=== PATIENT | male | born 1995 | race Native Hawaiian/Other Pacific Islander ===

== ENCOUNTER 2018-09-23 09:15 | Outpatient (CLI) | payer OTHER ==
[~2018-09-23 09:15] MED LIST: ALBUTEROL NEB 2.5 MG/3 ML INH ONE
== END 2018-09-23 09:16 | disposition home or self-care (01) ==
LOC: RT 09:15
PROVIDERS: ATTEND Specialist
DX: J45.909 Unspecified asthma, uncomplicated (principal)
CPT/HCPCS: 94010

== ENCOUNTER 2021-09-04 23:10 | Emergency (ER) | payer OTHER ==
--- NOTE | 2021-09-04 23:19 | ED Physician Documentation ---
History of Present Illness - Stated complaint Stated Complaint: LT LEG WOUND - Chief complaint Chief Complaint: Ext Problem - History obtained from History obtained from: Patient - History of Present Illness Timing: How many weeks ago (1) Pain level now: 1 Improved by: rest, elevation Worsened by: standing - Additonal information Additional information: c/o 1 week of atraumatic left lower leg swelling, redness. he was T+R from [facility] ED 1 week ago, and he says he had a fever Tmax 100.2 (although he says he has not had fever since then). He was diagnosed with cellulitis (per patient) and prescribed bactrim which he has been taking as prescribed. He presents at this time due to concerned that the color of the lesion has changed over the course of the day to a darker brown/blue color. He says the swelling and pain isn't particularly worse, though not better, compared to the past few days. Review of Systems Constitutional: reports: Fever (1 week ago without recurrence) Skin: reports: Rash, Lesions PD PAST MEDICAL HISTORY - Past Medical History Past Medical History: No - Present Medications Home Medications: Ambulatory Orders Medication Instructions Recorded Confirmed SULFAM/TRIM 800/160 Prepack 2 1 tab PO BID 09/04/21 09/05/21 [BACTRIM DS 800/160 Prepack 2] - Allergies Allergies/Adverse Reactions: Allergies Allergy/AdvReac Type Severity Reaction Status Date / Time No Known Drug Allergies Allergy Verified 09/05/21 18:14 - Living Situation Living Arrangement: reports: At home PD ED PE NORMAL - Vitals Vital signs reviewed: Yes - General General: Alert and oriented X 3, No acute distress, Well developed/nourished - Extremities Extremities: Normal ROM s pain, No edema PD ED PE EXPANDED - Extremities CASEY LE visual: 1 - rash (poorly marginated hyperpigmentation, no erythema. not hot to touch), swelling (approximately 1-2cm diameter swelling that is soft and not fluctuant), tenderness (minimal TTP) Results - Vitals Vitals: Vital Signs - 24 hr 02/21/22 02/22/22 23:13 01:01 Temperature 36.5 C 37.3 C Heart Rate 79 78 Respiratory 16 14 Rate Blood Pressure 129/74 144/82 H O2 Saturation 96 100 Oxygen O2 Source Room air - Rads (name of study) xrays tib/fib Radiology: Prelim report reviewed, See rad report PD MEDICAL DECISION MAKING - ED course Complexity details: reviewed results, re-evaluated patient, considered differential, d/w patient ED course: xrays peformed to ensure there is no evidence of mass or lytic (bony) lesion; the xrays are unremarkable. He is given 1gram IM rocephin and instructed to continue (finish) his current antibiotic prescription Departure - Departure Disposition: Home, Self Care Clinical Impression: Cellulitis Condition: Good Instructions: ED Infec Skin Cellulitis Follow-Up: Cory Jensen DO [Primary Care Provider] - Comments: Finish the previously prescribed antibiotic. You were given a shot of a diffe rent antibiotic (rocephin) in the emergency department because you have indicated the infection seems to be getting worse today. Hopefully the shot of rocephin and finishing the other antibiotic will help resolve the lesion. As we discussed, I am not certain the lesion represents an infection, and thus I recommend that you arrange for follow up with your primary care provider; if possible, reevaluation within the next week would be ideal. Discharge Date/Time: 09/05/21 01:04
--- NOTE | 2021-09-05 00:07 | XRAY Report ---
PROCEDURE: Tib/Fib LT INDICATIONS: painful swelling, focal, left lower leg TECHNIQUE: 2 views of the tibia and fibula were acquired. COMPARISON: None FINDINGS: Bones: No fractures or dislocations. No suspicious bony lesions. Soft tissues: No suspicious soft tissue calcifications or masses. IMPRESSION: No evidence acute bony abnormality of the left tibia and fibula. Reviewed by: Jamie Rueda MD on 09/05/2021 12:05 AM PST Approved by: Jamie Rueda MD on 09/05/2021 12:05 AM PST Station ID: [id number]
[2021-09-05] MEDS ORDERED: cefTRIAXone 1 GM VIAL IM STA (00:34)
[2021-09-05 01:03] VITALS: BP 144/82
== END 2021-09-05 01:04 | disposition home or self-care (01) ==
LOC: ED 23:10
DX: L03.116 Cellulitis of left lower limb (principal)
CPT/HCPCS: 96372; 99283

== ENCOUNTER 2021-09-05 18:03 | Emergency (ER) | payer BC, OTHER ==
--- NOTE | 2021-09-05 18:17 | ED Physician Documentation ---
PD HPI SKIN - Stated complaint Stated Complaint: SUDDEN FEVER SPIKE - Chief complaint Chief Complaint: Fever - History obtained from History obtained from: Patient - History of Present Illness Timing - onset: Today (has had cellulitis left lower leg being treated with BActrim and gradually improving but still local redness/swelling anteriorly. SEen last evening and had IM Rocephin added. TOld to return if fever/worse. PT states temp to 102 this afternoon, so here for exam. FEels general malaise as well.) Timing - duration: Days (onset today of malaise and fever. HAs had leg infection for a week.) Location: LLE Quality / character: Painful, Discolored, Raised. No: Draining Associated symptoms: Fever (today), Myalgias (today). No: N/V/D Similar symptoms before: Has not had sx before Recently seen: Clinic, Emergency Dept Review of Systems Constitutional: reports: Fever, Myalgias Nose: denies: Rhinorrhea / runny nose, Congestion Throat: denies: Sore throat Respiratory: denies: Cough GI: denies: Nausea, Vomiting, Diarrhea Neurologic: denies: Altered mental status, Headache PD PAST MEDICAL HISTORY - Past Medical History Cardiovascular: None Respiratory: None Endocrine/Autoimmune: None - Past Surgical History Past Surgical History: Yes General: Other Ortho: Other - Present Medications Home Medications: Ambulatory Orders Medication Instructions Recorded Confirmed SULFAM/TRIM 800/160 Prepack 2 1 tab PO BID 09/04/21 09/05/21 [BACTRIM DS 800/160 Prepack 2] clindamycin HCL [Clindamycin HCl] 300 mg PO TID #30 cap 09/05/21 - Allergies Allergies/Adverse Reactions: Allergies Allergy/AdvReac Type Severity Reaction Status Date / Time No Known Drug Allergies Allergy Verified 09/05/21 18:14 - Social History Does the pt smoke?: No Smoking Status: Never smoker Does the pt drink ETOH?: Yes Does the pt have substance abuse?: No - Immunizations Immunizations are current?: Yes - POLST Patient has POLST: No PD ED PE NORMAL - Vitals Vital signs reviewed: Yes - General General: Alert and oriented X 3, No acute distress, Well developed/nourished - HEENT HEENT: Pharynx benign - Neck Neck: Supple, no meningeal sign, No adenopathy - Cardiac Cardiac: RRR, No murmur - Respiratory Respiratory: Clear bilaterally - Abdomen Abdomen: Soft, Non tender - Derm Derm: Normal color, Warm and dry, Other (lower anterior left lower leg with moderate local redness about 6-8 cm diameter, with central 2 cm raised area of fluctuant tenderness. BEdside U?S Showing fluid collection. ) - Neuro Neuro: Alert and oriented X 3, No motor deficit, No sensory deficit, Normal speech Results - Vitals Vitals: Vital Signs - 24 hr 09/05/21 09/05/21 09/05/21 18:08 18:31 19:39 Temperature 37.4 C Heart Rate 109 H 107 H 94 Respiratory 18 18 20 Rate Blood Pressure 118/63 115/69 O2 Saturation 97 95 98 09/05/21 09/05/21 09/05/21 19:44 20:25 21:00 Temperature Heart Rate 98 95 85 Respiratory 20 14 14 Rate Blood Pressure 120/70 113/68 110/60 O2 Saturation 98 97 100 09/05/21 21:10 Temperature 38.3 C H Heart Rate Respiratory Rate Blood Pressure O2 Saturation Oxygen O2 Source Room air - Labs Labs: Laboratory Tests 09/05/21 09/05/21 09/05/21 18:50 18:50 18:50 WBC 2.5 L RBC 4.57 L Hgb 13.9 L Hct 40.2 L MCV 88.0 MCH 30.4 MCHC 34.6 RDW 12.2 Plt Count 288 MPV 9.9 Neut # (Auto) 1.5 Lymph # (Auto) 0.4 L [place] # (Auto) 0.5 Eos # (Auto) 0.1 Baso # (Auto) 0.0 Absolute Nucleated RBC 0.00 Nucleated RBC % 0.0 Manual Slide Review Indicated WBC Morphology NORMAL APPEARANCE Platelet Estimate NORMAL (130-450,000) Platelet Morphology NORMAL APPEARANCE RBC Morph Micro Appear NORMAL APPEARANCE Sodium Potassium Chloride Carbon Dioxide Anion Gap BUN Creatinine Estimated GFR (MDRD) Glucose Lactic Acid 1.4 Calcium Total Bilirubin AST ALT Alkaline Phosphatase Total Protein Albumin Globulin Albumin/Globulin Ratio Lipase Nasal Adenovirus (PCR) NOT DETECTED Nasal B. parapertussis DNA (PCR) NOT DETECTED Nasal Coronavir 229E PCR NOT DETECTED Nasal Coronavir HKU1 PCR NOT DETECTED Nasal Coronavir NL63 PCR NOT DETECTED Nasal Coronavir OC43 PCR NOT DETECTED Nasal Enterovir/Rhinovir PCR NOT DETECTED Nasal Influenza B PCR NOT DETECTED Nasal Influenza A PCR NOT DETECTED Nasal Parainfluen 1 PCR NOT DETECTED Nasal Parainfluen 2 PCR NOT DETECTED Nasal Parainfluen 3 PCR NOT DETECTED Nasal Parainfluen 4 PCR NOT DETECTED Nasal RSV (PCR) NOT DETECTED Nasal B.pertussis DNA PCR NOT DETECTED Nasal C.pneumoniae (PCR) NOT DETECTED [place] Human Metapneumo PCR NOT DETECTED Nasal M.pneumoniae (PCR) NOT DETECTED Nasal SARS-CoV-2 (PCR) NOT DETECTED 09/05/21 19:33 WBC RBC Hgb Hct MCV MCH MCHC RDW Plt Count MPV Neut # (Auto) Lymph # (Auto) [place] # (Auto) Eos # (Auto) Baso # (Auto) Absolute Nucleated RBC Nucleated RBC % Manual Slide Review WBC Morphology Platelet Estimate Platelet Morphology RBC Morph Micro Appear Sodium 131 L Potassium 3.8 Chloride 99 L Carbon Dioxide 24 Anion Gap 8.0 BUN 11 Creatinine 1.3 H Estimated GFR (MDRD) 66 L Glucose 119 H Lactic Acid Calcium 8.0 L Total Bilirubin 0.3 AST 35 ALT 34 Alkaline Phosphatase 109 Total Protein 6.7 Albumin 3.4 Globulin 3.3 Albumin/Globulin Ratio 1.0 Lipase 29 Nasal Adenovirus (PCR) Nasal B. parapertussis DNA (PCR) Nasal Coronavir 229E PCR Nasal Coronavir HKU1 PCR Nasal Coronavir NL63 PCR Nasal Coronavir OC43 PCR Nasal Enterovir/Rhinovir PCR Nasal Influenza B PCR Nasal Influenza A PCR Nasal Parainfluen 1 PCR Nasal Parainfluen 2 PCR Nasal Parainfluen 3 PCR Nasal Parainfluen 4 PCR Nasal RSV (PCR) Nasal B.pertussis DNA PCR Nasal C.pneumoniae (PCR) [place] Human Metapneumo PCR Nasal M.pneumoniae (PCR) Nasal SARS-CoV-2 (PCR) Procedures - Abscess I&D (location) left anterior lower leg Preparation: Confirmed with ultrasound, Lidocaine 1%, With epi Incision: Incised with scalpel, Purulent drainage, Irrigated, Culture obtained Other: Pt tolerated well, Dressing applied PD MEDICAL DECISION MAKING - ED course Complexity details: reviewed results (WBC actually low. lactate okay. blood cultures obtained to eval for potential bacteremia from the left infection. Resp panel negative, as consider other cause for malaise/fever. ), considered differential (slowly improving cellulitis with apparent central abscess still. can do I&D to help resolve sooner. HAd malaise/fever today, so consider for sepsis/bacteremia. ), d/w patient Departure - Departure Disposition: 01 Home, Self Care Clinical Impression: Abscess of lower leg Cellulitis Qualifiers: Site of cellulitis: extremity Site of cellulitis of extremity: lower extremity Laterality: left Qualified Code(s): L03.116 - Cellulitis of left lower limb Condition: Good Record reviewed to determine appropriate education?: Yes Instructions: ED Infec Skin Cellulitis Follow-Up: Cory Jensen DO [Primary Care Provider] - Prescriptions: clindamycin HCL [Clindamycin HCl] 300 mg PO TID #30 cap Comments: A prescription for a different antibiotic (clindamycin) has been electronically submitted to [facility] pharmacy in [place], but FINISH THE PREVIOUSLY PRESCRIBED ANTIBIOTIC (bactrim). This is not an uncommon combination of antibiotics. The results of the wound culture will be available in 2 or 3 days, and if the culture shows a bacterial infection that is resistant to the antibiotics you are on, you should get a call from this hospital and advice as to switching to an appropriate antibiotic Discharge Date/Time: 09/05/21 21:10
[2021-09-05] MEDS ORDERED: SODIUM CHLORIDE 0.9% 1,000 ML IV STA (18:34)
[2021-09-05] MEDS ORDERED: CLINDAMYCIN 600 MG/50 ML 50 ML IV ONE (18:35)
[2021-09-05] MEDS ORDERED: LIDOCAINE 1%-EPI 1:100000 20 ML MDV SUBQ STA (18:35)
[2021-09-05 19:15] LABS: BASOPHILS % (AUTO) 1.2 %; EOSINOPHILS # (AUTO) 0.1 10^3/uL (0.0-0.7); EOSINOPHILS % (AUTO) 4.4 %; HCT - HEMATOCRIT 40.2 % (42.0-52.0); HGB - HEMOGLOBIN 13.9 g/dL (14.0-18.0); LYMPHOCYTES # (AUTO) 0.4 10^3/uL (1.5-3.5); MEAN CORPUSCULAR HEMOGLOBIN 30.4 pg (27.0-31.0); MEAN CORPUSCULAR HGB CONC 34.6 g/dL (32.0-36.0); MEAN PLATELET VOLUME 9.9 fL (7.4-11.4); MONOCYTES # (AUTO) 0.5 10^3/uL (0.0-1.0); MONOCYTES % (AUTO) 19.2 %; NEUTROPHILS # (AUTO) 1.5 10^3/uL (1.5-6.6); NEUTROPHILS % (AUTO) 59.2 %; PLT - PLATELET COUNT 288 10^3/uL (130-450); RED BLOOD COUNT 4.57 10^6/uL (4.70-6.10); RED CELL DISTRIBUTION WIDTH 12.2 % (12.0-15.0); WHITE BLOOD COUNT 2.5 x10^3/uL (4.8-10.8)
[2021-09-05 19:21] LABS: SLIDE REVIEW? Indicated
[2021-09-05 19:51] LABS: ALBUMIN 3.4 g/dL (3.2-5.5); BILIRUBIN,TOTAL 0.3 mg/dL (0.2-1.0); CREATININE 1.3 mg/dL (0.6-1.2); POTASSIUM 3.8 mmol/L (3.5-5.0); TOTAL PROTEIN 6.7 g/dL (6.7-8.2)
[2021-09-05 19:57] LABS: PLATELET ESTIMATE, MANUAL NORMAL (130-450,000) (NORMAL); PLATELET MORPHOLOGY NORMAL APPEARANCE (NORMAL); RBC MORPHOLOGY (MULTIPLE) NORMAL APPEARANCE (NORMAL); WBC MORPHOLOGY (MULTIPLE) NORMAL APPEARANCE (NORMAL)
[2021-09-05 20:08] LABS: B. PARAPERTUSSIS- RESP PCR PAN NOT DETECTED; B. PERTUSSIS- RESP PCR PANEL NOT DETECTED; C. PNEUMONIAE- RESP PCR PANEL NOT DETECTED; CORONAVIRUS 229E-RESP PCR NOT DETECTED; CORONAVIRUS HKU1-RESP PCR NOT DETECTED; CORONAVIRUS NL63-RESP PCR NOT DETECTED; CORONAVIRUS OC43-RESP PCR NOT DETECTED; HUMAN METAPNEUMOVIRUS NOT DETECTED; INFLUENZA A- RESP PCR PANEL NOT DETECTED; INFLUENZA B - RESP PCR PANEL NOT DETECTED; M. PNEUMONIAE- RESP PCR PANEL NOT DETECTED; PARAINFLUENZA VIRUS 1 NOT DETECTED; PARAINFLUENZA VIRUS 2 NOT DETECTED; PARAINFLUENZA VIRUS 3 NOT DETECTED; PARAINFLUENZA VIRUS 4 NOT DETECTED; RHINOVIRUS/ENTEROVIRUS NOT DETECTED; RSV- RESP PCR PANEL NOT DETECTED; SARS-CoV-2 -RESP PCR PANEL NOT DETECTED
[2021-09-05 21:03] VITALS: BP 110/60
--- NOTE | 2021-09-05 21:03 | ED Physician Documentation ---
ED Addendum - Addendum Addendum: 09/05/21 21:01 Received sign out from Dr. Castanon. I saw this patient the previous night for same, but he returns due to fever. His blood tests do not have alarming findings, although he has mild leukopenia and creatinine is 1.6; these can be rechecked in outpatient setting. I applied pressure to the I+D site (performed by Dr. Lg meza) and I was able to express more purulent material. He is well appearing and comfortable with d/c home. Test results reviewed with patient, instructed to seek follow up , ideally at end of week so the antibiotic has a chance to have noticeable effect. He is encouraged to return if worse.
== END 2021-09-05 21:10 | disposition home or self-care (01) ==
LOC: ED 18:03
DX: L03.116 Cellulitis of left lower limb (principal); Z20.822 Contact with and (suspected) exposure to COVID-19
CPT/HCPCS: 0202U; 10060; 36415; 80053; 83605; 83690; 85025; 87040; 87070; 87205; 96365; 99282; 99284

== ENCOUNTER 2021-09-07 11:01 | Emergency (ER) | payer BC ==
[2021-09-07 12:27] LABS: BASOPHILS % (AUTO) 0.3 %; EOSINOPHILS % (AUTO) 1.3 %; HCT - HEMATOCRIT 39.7 % (42.0-52.0); HGB - HEMOGLOBIN 14.1 g/dL (14.0-18.0); LYMPHOCYTES % (AUTO) 21.5 %; MEAN CORPUSCULAR HEMOGLOBIN 30.8 pg (27.0-31.0); MEAN CORPUSCULAR HGB CONC 35.5 g/dL (32.0-36.0); MEAN CORPUSCULAR VOLUME 86.7 fL (80.0-94.0); MEAN PLATELET VOLUME 9.4 fL (7.4-11.4); MONOCYTES % (AUTO) 6.1 %; NEUTROPHILS % (AUTO) 70.5 %; PLT - PLATELET COUNT 217 10^3/uL (130-450); RED BLOOD COUNT 4.58 10^6/uL (4.70-6.10); RED CELL DISTRIBUTION WIDTH 11.9 % (12.0-15.0); WHITE BLOOD COUNT 3.8 x10^3/uL (4.8-10.8)
[2021-09-07 12:30] LABS: ABNORMAL LYMPHS % (MANUAL) 0 %
[2021-09-07 12:37] LABS: CALCIUM 8.4 mg/dL (8.5-10.3); CREATININE 1.3 mg/dL (0.6-1.2); POTASSIUM 3.8 mmol/L (3.5-5.0)
[2021-09-07 12:46] LABS: BAND NEUTROPHILS % (MANUAL) 2 %; DIFFERENTIAL COMMENT MANUAL DIFFERENTIAL; LYMPHOCYTES # (MANUAL) 0.6 10^3/uL (1.5-3.5); LYMPHOCYTES % (MANUAL) 13 %; MONOCYTES # (MANUAL) 0.4 10^3/uL (0.0-1.0); NEUTROPHILS # (MANUAL) 2.8 10^3/uL (1.5-6.6); PLATELET ESTIMATE, MANUAL NORMAL (130-450,000) (NORMAL); PLATELET MORPHOLOGY NORMAL APPEARANCE (NORMAL); RBC MORPHOLOGY (MULTIPLE) NORMAL APPEARANCE (NORMAL); REACTIVE LYMPHS % (MANUAL) 2 %
[2021-09-07 14:30] LABS: INFECTIOUS MONONUCLEOSIS NEGATIVE (Negative)
[2021-09-07] MEDS ORDERED: KETOROLAC 30 MG/ML VIAL IM STA (14:44)
[2021-09-07] MEDS ORDERED: DEXAMETHASONE 10 MG/ML VIAL PO STA (14:45)
[2021-09-07] MEDS ORDERED: diphenhydrAMINE 25 MG CAPSULE PO STA (14:45)
[2021-09-07] MEDS ORDERED: ACETAMINOPHEN 325 MG TABLET PO STA (14:45)
[2021-09-07] MEDS ORDERED: CHERRY SYRUP 10 ML UDC PO ONE (14:45)
--- NOTE | 2021-09-07 15:17 | ED Physician Documentation ---
PD HPI URI - Stated complaint Stated Complaint: FEVER, CHILLS, SHAKING - Chief complaint Chief Complaint: Fever - History obtained from History obtained from: Patient - History of Present Illness Timing - onset: How many days ago (2-3) Timing duration: Days (2-3) Timing details: Abrupt onset, Still present, Waxing and waning (he had onset of fevers, chills, aches few days ago. Seen in ER with labs, blood cultures, respiratory panel testing. All negative. had I&D OF persistent lower leg infection/abscess. HE states that is much improved. HOwever having still ahces/fevers,malaise.) Associated symptoms: Fever, Chills, NVD (nausea without diarrhea/vomiting), Other (noted some itchy blotchy rash on arms since last evening. Mild on chest.). No: Nasal congestion, Swollen nodes, Dry cough, Dyspnea Contributing factors: No: Sick contact, Travel, Unimmunized Improves by: Medication (he says tylenol helps with fever for few hours.) Similar symptoms before: Has not had sx before Recently seen: Emergency Dept (seen 2 days ago for similar and says it is still recurring and worse on the myalgias. No URI SYMptoms.) Review of Systems Constitutional: reports: Fever, Chills, Myalgias, Fatigue Nose: denies: Rhinorrhea / runny nose, Congestion Throat: denies: Sore throat Cardiac: denies: Chest pain / pressure, Palpitations Respiratory: denies: Dyspnea, Cough GI: reports: Nausea. denies: Abdominal Pain, Vomiting, Diarrhea Skin: reports: Rash. denies: Lesions Musculoskeletal: denies: Neck pain, Back pain PD PAST MEDICAL HISTORY - Past Medical History Cardiovascular: None Respiratory: None Endocrine/Autoimmune: None - Past Surgical History Past Surgical History: Yes General: Other Ortho: Other - Present Medications Home Medications: Ambulatory Orders Medication Instructions Recorded Confirmed SULFAM/TRIM 800/160 Prepack 2 1 tab PO BID 09/04/21 09/05/21 [BACTRIM DS 800/160 Prepack 2] clindamycin HCL [Clindamycin HCl] 300 mg PO TID #30 cap 09/05/21 Acetaminophen [Acetaminophen Extra 500 mg PO QID PRN #30 tablet 09/07/21 Strength] Cetirizine [ZyrTEC] 10 mg PO BID #14 tablet 09/07/21 dexAMETHasone [Decadron] 4 mg PO DAILY #5 tablet 09/07/21 - Allergies Allergies/Adverse Reactions: Allergies Allergy/AdvReac Type Severity Reaction Status Date / Time No Known Drug Allergies Allergy Verified 09/07/21 11:22 - Social History Does the pt smoke?: No Smoking Status: Never smoker Does the pt drink ETOH?: Yes Does the pt have substance abuse?: No - Immunizations Immunizations are current?: Yes - POLST Patient has POLST: No PD ED PE NORMAL - Vitals Vital signs reviewed: Yes - General General: Alert and oriented X 3, Well developed/nourished - HEENT HEENT: Ears normal, Pharynx benign. No: Moist mucous membranes - Neck Neck: Supple, no meningeal sign, No adenopathy - Cardiac Cardiac: RRR, No murmur, No rub - Respiratory Respiratory: No respiratory distress, Clear bilaterally - Abdomen Abdomen: Soft, Non tender. No: Normal bowel sounds (decreased) - Derm Derm: Normal color, Other (fine red speckled rash on forearmsand some upper chest wtihout vesicles. ) - Neuro Neuro: Alert and oriented X 3, No motor deficit, Normal speech Results - Vitals Vitals: Vital Signs - 24 hr 09/07/21 09/07/21 11:16 15:38 Temperature 37.9 C Heart Rate 109 H 90 Respiratory 17 19 Rate Blood Pressure 136/74 H 110/78 O2 Saturation 98 98 Oxygen O2 Source Room air - Labs Labs: Laboratory Tests 09/07/21 09/07/21 09/07/21 12:18 12:18 12:18 WBC 3.8 L RBC 4.58 L Hgb 14.1 Hct 39.7 L MCV 86.7 MCH 30.8 MCHC 35.5 RDW 11.9 L Plt Count 217 MPV 9.4 Neut # (Auto) Not Reportable Lymph # (Auto) Not Reportable [place] # (Auto) Not Reportable Eos # (Auto) Not Reportable Baso # (Auto) Not Reportable Absolute Nucleated RBC Not Reportable Total Counted 100 Band Neuts % (Manual) 2 Reactive Lymphs % (Man) 2 Abnorm Lymph % (Manual) 0 Nucleated RBC % Not Reportable Neutrophils # (Manual) 2.8 Lymphocytes # (Manual) 0.6 L Monocytes # (Manual) 0.4 Eosinophils # (Manual) 0.0 Basophils # (Manual) 0.0 Differential Comment MANUAL DIFFERENTIAL Platelet Estimate NORMAL (130-450,000) Platelet Morphology NORMAL APPEARANCE RBC Morph Micro Appear NORMAL APPEARANCE Sodium 129 L Potassium 3.8 Chloride 100 L Carbon Dioxide 21 Anion Gap 8.0 BUN 10 Creatinine 1.3 H Estimated GFR (MDRD) 66 L Glucose 112 H Calcium 8.4 L Infectious [place] Assay NEGATIVE PD MEDICAL DECISION MAKING - ED course Complexity details: reviewed old records (recent blood cultures results negative.), reviewed results, considered differential (his left leg is much better and only mild tender now. This does not seem to be source for bacteremia. He does not have focal symptoms for abscess/etc. Recent WBC Was low and so too today, seeming more likely viral. ESR was normal as well. had malaise/fevers, now some itchy rash. ? allergy to med.), d/w patient Departure - Departure Disposition: 01 Home, Self Care Clinical Impression: Abscess of lower leg, Rash Fever Qualifiers: Fever type: drug-induced Qualified Code(s): R50.2 - Drug induced fever Condition: Stable Record reviewed to determine appropriate education?: Yes Follow-Up: Cory Jensen DO [Primary Care Provider] - Prescriptions: Acetaminophen [Acetaminophen Extra Strength] 500 mg PO QID PRN #30 tablet PRN Reason: Pain dexAMETHasone [Decadron] 4 mg PO DAILY #5 tablet Cetirizine [ZyrTEC] 10 mg PO BID #14 tablet Comments: Your blood test again today shows a slightly low white count and not elevated. Your kidney function is actually better today so good job on the hydration. Your blood cultures from 2 days ago are negative so no signs of bacteremia, which is bacteria into the bloodstream from your leg infection site. The leg wound does appear better. With these things in mind, I wonder if your fevers aches and now some rash relate to an allergic reaction to your antibiotic instead. I would have you stop the first antibiotic (trimethoprim sulfa). You could continue the second 1 clindamycin that you have gotten as your symptoms did start prior to the onset of that antibiotic. Stay well-hydrated still. Tylenol every 4 hours for the next several days and at add ibuprofen or such if needed for fevers and pains. I would start some medication for allergic reaction to include cetirizine antihistamine twice daily for the next week and Decadron steroid daily for the next 5 days. Recheck if not improving well over the next couple of days and return if worsening. Continue soaking of the lower leg to promote any further drainage. I transmitted your prescriptions to [facility] in [place]. Discharge Date/Time: 09/07/21 15:39
[2021-09-07 15:39] VITALS: BP 110/78
== END 2021-09-07 15:39 | disposition home or self-care (01) ==
LOC: ED 11:01
DX: R21 Rash and other nonspecific skin eruption (principal); L02.419 Cutaneous abscess of limb, unspecified; R50.2 Drug induced fever
CPT/HCPCS: 36415; 80048; 85025; 86308; 99282; 99283; A9270